=== PATIENT | female | born 1980 | race Caucasian/White ===

== ENCOUNTER 2017-07-17 20:57 | Emergency (ER) | payer MEDICAID, OTHER ==
[~2017-07-17] VITALS: Ht 160 cm; Wt 100.8 kg
[2017-07-17] MEDS ORDERED: DEXAMETHASONE 4 MG TABLET PO STA (21:22)
[2017-07-17] MEDS ORDERED: DEXAMETHASONE 4 MG TABLET ONE (21:25)
[2017-07-17 21:47] VITALS: BP 114/69
== END 2017-07-17 22:04 | disposition home or self-care (01) ==
LOC: ED 21:50
DX: J20.8 Acute bronchitis due to other specified organisms (principal); J02.9 Acute pharyngitis, unspecified
CPT/HCPCS: 99283

== ENCOUNTER 2017-10-18 12:16 | Emergency (ER) | payer MEDICAID ==
[~2017-10-18] VITALS: Ht 160 cm; Wt 108.0 kg
[2017-10-18] MEDS ORDERED: CITA40TA5 PO (12:41)
[2017-10-18] MEDS ORDERED: LISI40TA PO (12:41)
[2017-10-18 14:22] VITALS: BP 112/73
== END 2017-10-18 14:24 | disposition home or self-care (01) ==
LOC: ED 13:50
DX: J20.9 Acute bronchitis, unspecified (principal); I10 Essential (primary) hypertension
CPT/HCPCS: 71045; 99283

== ENCOUNTER 2017-11-25 06:09 | Emergency (ER) | payer MEDICAID ==
[~2017-11-25] VITALS: Ht 160 cm; Wt 103.6 kg
[~2017-11-25 06:09] MED LIST: CITA40TA5 PO; LISI40TA PO
[2017-11-25 06:11] VITALS: BP 148/93
[2017-11-25] MEDS ORDERED: CARBAMIDE PEROXIDE EAR DROPS 6.5%, 15ML ONE (06:30)
[2017-11-25] MEDS ORDERED: CARBAMIDE PEROXIDE EAR DROPS 6.5%, 15ML RIGHT EAR ONE (06:30)
== END 2017-11-25 08:30 | disposition home or self-care (01) ==
LOC: ED 06:59
DX: H66.001 Acute suppurative otitis media without spontaneous rupture of ear drum, right ear (principal); H60.311 Diffuse otitis externa, right ear; I10 Essential (primary) hypertension
CPT/HCPCS: 99283

== ENCOUNTER 2018-08-27 04:24 | Emergency (ER) | payer MEDICAID ==
[~2018-08-27] VITALS: Ht 160 cm; Wt 108.2 kg
[2018-08-27 05:35] LABS: BASOPHILS # (AUTO) 0.13 x10^3/uL (0-0.1); BASOPHILS % (AUTO) 1 % (0-1); EOSINOPHILS # (AUTO) 0.18 x10^3/uL (0-0.4); EOSINOPHILS % (AUTO) 2 % (1-7); LYMPHOCYTES # (AUTO) 3.41 x10^3/uL (1-3.4); LYMPHOCYTES % (AUTO) 29 % (22-44); MD NO; MEAN CORPUSCULAR HEMOGLOBIN 30.8 pg (27.0-34.8); MEAN CORPUSCULAR VOLUME 90.4 fL (80-100); MEAN PLATELET VOLUME 7.9 fL (7.4-10.4); MONOCYTES # (AUTO) 0.73 x10^3/uL (0.2-0.8); MONOCYTES % (AUTO) 6 % (2-9); NEUTROPHILS # (AUTO) 7.39 x10^3/uL (1.8-6.8); NEUTROPHILS % (AUTO) 62 % (42-75); PLATELET COUNT 241 x10^3/uL (130-400); RED CELL DISTRIBUTION WIDTH 15.8 % (9.6-15.2)
[2018-08-27 05:41] LABS: ALANINE AMINOTRANSFERASE 58 U/L (12-78); ALBUMIN 3.7 g/dL (3.4-5.0); ANION GAP 9 mmol/L (5-15); CALCIUM 8.5 mg/dL (8.5-10.1); CHLORIDE 103 mmol/L (98-107); CREATININE 0.75 mg/dL (0.55-1.02)
[2018-08-27 05:43] LABS: MICROSCOPIC NOT IND
[2018-08-27 05:46] LABS: ALKALINE PHOSPHATASE 110 U/L (45-117); BILIRUBIN,TOTAL 0.5 mg/dL (0.2-1.0); TOTAL PROTEIN 7.9 g/dL (6.4-8.2)
[2018-08-27 05:46] LABS: CULTURE INDICATED? NO
[2018-08-27 08:35] LABS: CLOSTRIDIUM DIFFICILE ANTIGEN NEGATIVE; CLOSTRIDIUM DIFFICILE TOXIN NEGATIVE (Negative)
[2018-08-27] MEDS ORDERED: OMNIPAQUE 350 MG/ML, 100ML BOTTLE ONE (10:24)
[2018-08-27 10:46] VITALS: BP 133/90
== END 2018-08-27 11:25 | disposition home or self-care (01) ==
LOC: ED 06:26
DX: R19.7 Diarrhea, unspecified (principal); R10.84 Generalized abdominal pain; I10 Essential (primary) hypertension
CPT/HCPCS: 36415; 74021; 74177; 80053; 81003; 83690; 84703; 85025; 87324; 89055; 99284; Q9967

== ENCOUNTER 2018-10-08 12:35 | Emergency (ER) | payer MEDICAID ==
[~2018-10-08] VITALS: Ht 160 cm; Wt 114.6 kg
[2018-10-08 12:44] VITALS: BP 145/84
[2018-10-08] MEDS ORDERED: DEXAMETHASONE 4 MG TABLET ONE (14:13)
[2018-10-08] MEDS ORDERED: DEXAMETHASONE 4 MG TABLET PO ONE (14:30)
== END 2018-10-08 14:20 | disposition home or self-care (01) ==
LOC: ED 14:14
DX: J02.0 Streptococcal pharyngitis (principal); I10 Essential (primary) hypertension
CPT/HCPCS: 87880; 99283

== ENCOUNTER 2019-04-30 22:45 | Emergency (ER) | payer MEDICAID ==
[~2019-04-30] VITALS: Ht 160 cm; Wt 119.6 kg
[2019-04-30 22:47] VITALS: BP 148/95
--- NOTE | 2019-04-30 23:01 | NUR ---
PT ARRIVED TO [facility] WITH FAMILY. PT C/O "A BUG FLEW IN MY EAR." PT STATES SHE WAS MARLENA EDWARD AND MD AT BEDSIDE FOR EXAM. DRIED BLOOD TO LEFT EAR THATS VISIBLE. PT AAO X 4, ON GURVANESSA, FAMILY AT BEDSIDE.
--- NOTE | 2019-04-30 23:12 | NUR ---
TECH AT BEDSIDE FOR IRRIGATION.
--- NOTE | 2019-04-30 23:18 | NUR ---
PA AT BEDSIDE FOR IRRIGATION WHILE SITTING. PT SITTING ON EOB.
[2019-04-30] MEDS ORDERED: DOCUSATE 50 MG/5 ML, 10ML UDC ONE (23:45)
--- NOTE | 2019-04-30 23:56 | NUR ---
PT TRANSFERRED TO ROOM 19. BREATHALYZER 0.24, PA NOTIFIED. LIQUID COLACE ADMINISTERED INTO EAR, PT TO LAY FOR 30 MINUTES.
[2019-05-01] MEDS ORDERED: DOCUSATE 50 MG/5 ML, 10ML UDC PO ONE
[2019-05-01] MEDS ORDERED: CARBAMIDE PEROXIDE EAR DROPS 6.5%, 15ML LEFT EAR ONE
--- NOTE | 2019-05-01 00:02 | NUR ---
REPORT GIVEN TO MELANIE PABLO. CARE TRANSFERRED AT THIS TIME.
== END 2019-05-01 01:12 | disposition home or self-care (01) ==
LOC: ED 05-01 01:05
DX: T16.2XXA Foreign body in left ear, initial encounter (principal); H60.12 Cellulitis of left external ear; I10 Essential (primary) hypertension; F10.10 Alcohol abuse, uncomplicated
CPT/HCPCS: 69200; 99284

== ENCOUNTER 2019-09-04 21:46 | Emergency (ER) | payer MEDICAID ==
[~2019-09-04] VITALS: Ht 160 cm; Wt 119.0 kg
[2019-09-04 21:51] VITALS: BP 159/106
[2019-09-04] MEDS ORDERED: DIPH,PERTUSS(ACELL),TET VAC/PF 0.5 ML IM-VACC ONE ×2 (22:00→22:10)
[2019-09-04] MEDS ORDERED: AMOXICILLIN/CLAV 875-125MG TABLET ONE (22:15)
[2019-09-04] MEDS ORDERED: AMOXICILLIN/CLAV 875-125MG TABLET PO ONE (22:30)
== END 2019-09-04 23:24 | disposition home or self-care (01) ==
LOC: ED 22:37
DX: S60.571A Other superficial bite of hand of right hand, initial encounter (principal); G89.11 Acute pain due to trauma; I10 Essential (primary) hypertension; Z72.9 Problem related to lifestyle, unspecified; W55.01XA Bitten by cat, initial encounter; Y93.89 Activity, other specified; Y92.89 Other specified places as the place of occurrence of the external cause; Y99.8 Other external cause status
CPT/HCPCS: 29125; 90471; 90715; 99283

== ENCOUNTER 2019-10-11 07:37 | Inpatient (IN) | payer MEDICAID ==
[~2019-10-11] VITALS: Ht 160 cm; Wt 104.4 kg
[2019-10-11] MEDS ORDERED: IBUPROFEN 200 MG TABLET ONE (08:23)
[2019-10-11] MEDS ORDERED: ACETAMINOPHEN 500 MG TABLET ONE (08:23)
[2019-10-11] MEDS ORDERED: ACETAMINOPHEN 500 MG TABLET PO ONE (08:30)
[2019-10-11] MEDS ORDERED: IBUPROFEN 800 MG TABLET PO ONE (08:30)
--- NOTE | 2019-10-11 08:30 | NUR ---
PT HERE WITH C/O HEAD CONGESTION, AND COUGH. SYMPTOMS BEGAN YESTERDAY. PT DENIES CP/SOB.
[2019-10-11 08:48] LABS: RAPID INFLUENZA A Negative (Negative); RAPID INFLUENZA B Negative (Negative)
[2019-10-11] MEDS ORDERED: SODIUM CHLORIDE 0.9% 1,000ML IVBOLUS ONE (09:30)
[2019-10-11 09:48] LABS: BASOPHILS # (AUTO) 0.01 x10^3/uL (0-0.1); BASOPHILS % (AUTO) 0 % (0-1); EOSINOPHILS # (AUTO) 0.01 x10^3/uL (0-0.4); EOSINOPHILS % (AUTO) 0 % (1-7); LYMPHOCYTES # (AUTO) 0.74 x10^3/uL (1-3.4); LYMPHOCYTES % (AUTO) 18 % (22-44); MD NO; MEAN CORPUSCULAR HEMOGLOBIN 32.6 pg (27.0-34.8); MEAN CORPUSCULAR HGB CONC 33.1 g/dL (32.4-35.8); MEAN CORPUSCULAR VOLUME 98.6 fL (80-100); MEAN PLATELET VOLUME 8.1 fL (7.4-10.4); MONOCYTES # (AUTO) 0.48 x10^3/uL (0.2-0.8); MONOCYTES % (AUTO) 11 % (2-9); NEUTROPHILS # (AUTO) 2.98 x10^3/uL (1.8-6.8); NEUTROPHILS % (AUTO) 71 % (42-75); PLATELET COUNT 148 x10^3/uL (130-400); RED BLOOD COUNT 4.74 x10^6/uL (3.82-5.3); RED CELL DISTRIBUTION WIDTH 14.3 % (9.6-15.2)
--- NOTE | 2019-10-11 09:54 | NUR ---
PIV INITIATED, PT MEDICATED PER NOV. PT AMBULATED TO BR WITH STEADY GAIT. UA SAMPLE COLLECTED AND SENT TO LAB.
[2019-10-11 09:56] LABS: ALBUMIN 3.2 g/dL (3.4-5.0); ANION GAP 7 mmol/L (5-15); CALCIUM 8.3 mg/dL (8.5-10.1); CHLORIDE 97 mmol/L (98-107); CREATININE 0.78 mg/dL (0.55-1.02)
[2019-10-11 10:27] LABS: MICROSCOPIC INDICATED
--- NOTE | 2019-10-11 10:35 | NUR ---
PT ACCICDENTLY PULLED OUT IV-DELAY IN CARE. NEW PIV INITIATED, WILL CALL TO CT
[2019-10-11] MEDS ORDERED: OMNIPAQUE 350 MG/ML, 100ML BOTTLE ONE (11:01)
[2019-10-11 11:10] LABS: CULTURE INDICATED? NO
--- NOTE | 2019-10-11 11:18 | NUR ---
PT BACK FROM CT. PT DESAT 84-85% UNLESS REMINDED TO DEEP BREATH, THEN PT REGAINS TO 90%. PT PLACED ON SUP O2 AT 2LNC. ERMD MADE AWARE
[2019-10-11] MEDS ORDERED: ALBUTEROL/IPRATROPIUM 2.5MG/0.5MG, 3 ML NPPB ONE (11:30)
[2019-10-11] MEDS ORDERED: ALBUTEROL/IPRATROPIUM 2.5MG/0.5MG, 3 ML ONE (11:51)
--- NOTE | 2019-10-11 12:16 | NUR ---
PT CONTINUES TO DESAT POST BREATHING TREATMENT, O2 REPLACED. WILL UPDATE MD
--- NOTE | 2019-10-11 13:05 | NUR ---
PT TO BE ADMITTED, ADMITTING MD IN TO EVAL PT. PT MEDICATED PER NOV. NAD NOTED AT THIS TIME, PT DENIES NEEDS
[2019-10-11] MEDS ORDERED: ACETAMINOPHEN 325 MG TABLET PO PRN (13:30)
[2019-10-11] MEDS ORDERED: DEXTROMETHORPHAN 30 MG/5 ML ORAL SOL PO PRN (13:30)
--- NOTE | 2019-10-11 13:39 | NUR ---
REPORT GIVEN TO RECMIREILLE PABLO
[2019-10-11] MEDS: ENOXAPARIN 40 MG/0.4 ML SQ SCH (14:00)
[2019-10-11] MEDS: OSELTAMIVIR 75 MG CAPSULE PO SCH ×2 (14:53→22:02)
[2019-10-11 14:55] VITALS: BP 137/90
[2019-10-11 18:42] VITALS: BP 129/85
[2019-10-11] MEDS: GUAIFENESIN ER 600 MG TABLET PO SCH (22:02)
[2019-10-11] MEDS: INSULIN LISPRO 100 UNITS/ML, PEN SQ-INSULIN SCH (22:04)
[2019-10-12 03:25] VITALS: BP 132/84
[2019-10-12 05:32] LABS: BASOPHILS # (AUTO) 0.01 x10^3/uL (0-0.1); BASOPHILS % (AUTO) 0 % (0-1); EOSINOPHILS % (AUTO) 0 % (1-7); LYMPHOCYTES # (AUTO) 1.51 x10^3/uL (1-3.4); LYMPHOCYTES % (AUTO) 30 % (22-44); MD NO; MEAN CORPUSCULAR HEMOGLOBIN 32.5 pg (27.0-34.8); MEAN CORPUSCULAR HGB CONC 32.6 g/dL (32.4-35.8); MEAN CORPUSCULAR VOLUME 99.9 fL (80-100); MEAN PLATELET VOLUME 8.5 fL (7.4-10.4); MONOCYTES # (AUTO) 0.59 x10^3/uL (0.2-0.8); MONOCYTES % (AUTO) 12 % (2-9); NEUTROPHILS # (AUTO) 3.01 x10^3/uL (1.8-6.8); NEUTROPHILS % (AUTO) 59 % (42-75); PLATELET COUNT 142 x10^3/uL (130-400); RED BLOOD COUNT 4.46 x10^6/uL (3.82-5.3); RED CELL DISTRIBUTION WIDTH 14.9 % (9.6-15.2)
[2019-10-12 05:40] LABS: ALANINE AMINOTRANSFERASE 289 U/L (12-78); ALBUMIN 2.8 g/dL (3.4-5.0); ANION GAP 7 mmol/L (5-15); CALCIUM 7.9 mg/dL (8.5-10.1); CHLORIDE 104 mmol/L (98-107)
[2019-10-12 05:43] LABS: ALKALINE PHOSPHATASE 100 U/L (45-117); BILIRUBIN,TOTAL 0.6 mg/dL (0.2-1.0)
[2019-10-12 08:06] VITALS: BP 143/87
[2019-10-12] MEDS: GUAIFENESIN ER 600 MG TABLET PO SCH (08:20)
[2019-10-12] MEDS: OSELTAMIVIR 75 MG CAPSULE PO SCH (08:20)
[2019-10-12] MEDS: INSULIN LISPRO 100 UNITS/ML, PEN SQ-INSULIN SCH ×2 (08:21→11:19)
[2019-10-12 13:14] VITALS: BP 141/93
[2019-10-12] MEDS: ENOXAPARIN 40 MG/0.4 ML SQ SCH (13:54)
[2019-10-12] MEDS ORDERED: OSEL75CA14 PO (15:47)
[2019-10-12] MEDS ORDERED: METF850T10 PO (15:47)
== END 2019-10-12 16:42 | disposition home or self-care (01) | DRG 189 ==
LOC: ED 09:53 → EDIP 12:21 → 3N 14:12 → DCLOUNGE 10-12 16:31
PROVIDERS: ADMIT Internal Medicine; ATTEND Internal Medicine
DX: J96.01 Acute respiratory failure with hypoxia (principal); E87.1 Hypo-osmolality and hyponatremia; Z68.41 Body mass index [BMI] 40.0-44.9, adult; B34.9 Viral infection, unspecified; E11.65 Type 2 diabetes mellitus with hyperglycemia; E66.01 Morbid (severe) obesity due to excess calories; I10 Essential (primary) hypertension; J98.01 Acute bronchospasm; K76.0 Fatty (change of) liver, not elsewhere classified
CPT/HCPCS: 36415; 87400; J7620; 71046; 71275; 80048; 80053; 80074; 81001; 82040; 82962; 83036; 83605; 83880; 84443; 84703; 85025; 87040; 93005; 93306; 94640; 96360; G0378; Q9967; J1815; J7030; J7512